=== PATIENT | male | born 1965 | race Caucasian/White ===

== ENCOUNTER 2023-05-22 06:05 | Day surgery (SDC) | payer OTHER, SELFPAY ==
[2023-05-22] VITALS (10 sets, daily range): BP systolic 113–137; BP diastolic 80–92; BMI 25.1
[2023-05-22] MEDS: LOVENOX 40 MG SC (06:36)
[2023-05-22] MEDS: TYLENOL 1000 MG PO (06:36)
[2023-05-22] MEDS: NORMOSOL-R 1000 IV (06:43)
--- NOTE | 2023-05-22 09:25 | W.IMMPOSTOP ---
Surgical Immed Post Op Note
-
Primary Surgeon: Yasmin
Assisting Surgeon: Elmer PGY1
Pre-op Diagnosis: Recurrent incarcerated right inguinal hernia
Post-op Diagnosis: Same
Procedure Performed: Robot assisted laparoscopic repair of recurrent incarcerated right inguinal hernia
Anesthesia Type: GETA
Specimen / Cultures: None
Estimated Blood Loss: 5cc
Complications: None immediate
Operative Findings: Indirect inferior recurrence, prior mesh rolled superior and settled over the inferior epigastric/ilac junction; moderate cord lipoma; XL MID 3D Max
--- NOTE | 2023-05-22 09:27 | OR.RPT ---
Operative Report
Operative Report
Primary Surgeon: Yasmin
Assisting Surgeon: Elmer PGY1
Pre-op Diagnosis: Recurrent incarcerated right inguinal hernia
Post-op Diagnosis: Same
Procedure Performed: Robot assisted laparoscopic repair of recurrent incarcerated right inguinal hernia
Anesthesia Type: GETA
Specimen / Cultures: None
Estimated Blood Loss: 5cc
Complications: None immediate
Operative Findings: Indirect inferior recurrence, prior mesh rolled superior and settled over the inferior epigastric/iliac junction; moderate cord lipoma; XL MID 3D Max
Date of surgery: 05/22/23
Indications:� This 58M developed�recurrent right inguinal hernia.�He had prior open and laparoscopic repairs. Robot assisted laparoscopic repair was planned.
Description of procedure:� The patient was taken to the operating room and positioned into supine position. The patient�s abdomen was prepped and draped in standard sterile fashion. A time-out was completed verifying correct patient, procedure,
site, positioning, and implants and special equipment prior to beginning this procedure.� A stab incision was made in the left upper quadrant, a Veress needle was inserted and proper position was confirmed by aspiration and saline drop test.
Following this, pneumoperitoneum was created with insufflation of carbon dioxide to 12 mmHg. Then a 8mm robotic trocar was inserted above and to the left of the umbilicus. A laparoscope was inserted and the area of initial trocar entry and Veress
needle placement were both inspected and no injuries were found. Two 8mm trocars were then placed lateral to the rectus sheath under direct visualization.
Both inguinal regions were inspected and the median umbilical ligament, medial umbilical ligament, and lateral umbilical fold were identified. Left groin was inspected and no hernia was identified. Attention was turned to the right groin. Thin
omental adhesions were carefully taken down with cold donis and electrocautery. The peritoneum was incised transversely above the defect and a flap was developed in the caudad direction. Luis�s ligament was identified ultimately dissected to its
junction with the iliac vein and the space of Retzius was developed bluntly.� Around the vessels a rolled old mesh was encountered. A plane was identified superficial to the old mesh and the old mesh was swept down and away from the vessels together
with the peritoneal flap. The dissection was continued inferiorly to the iliopubic tract, with care taken to avoid injury to the femoral branch of the genitofemoral nerve and the lateral femoral cutaneous nerve. The cord structures were parietalized.
The direct space was inspected and a hernia was not identified. The femoral space was inspected and no hernia was identified.� The indirect space was inspected and large defect was identified and reduced by gentle traction. A moderate cord lipoma
was reduced from the canal.
Extra large right MID 3D max mesh was passed through a trocar. The mesh was placed into the preperitoneal space and moved into position to lay flat and completely cover the direct, indirect, and femoral spaces with overlap beyond the midline. The
mesh was secured into place using 2-0 vicryl suture to Luis�s ligament medially and laterally. Care was taken to avoid the inferolateral triangles containing the iliac vessels and genital nerves.
The peritoneal flap was closed over the mesh and secured with 2-0 monocryl stratafix suture in similar positions of safety. A 14g angiocath was used to decompress the preperitoneal space revealing good seal and all mesh in good position without
folding or curling. A single small inferior flap rent was closed with 2-0 vicryl suture. After ensuring adequate hemostasis, the trocars were removed and the pneumoperitoneum allowed to escape. The trocar incisions were closed at the skin level
using 4-0 monocryl and topical skin adhesive. The patient tolerated the procedure well and was taken to the postanesthesia care unit in stable condition.
I was present for and performed all hall portions of the procedure. The resident assisted with access, exposure and skin closure.�
[2023-05-22] MEDS: SUBLIMAZE 25 MCG IV ×2 (09:52→10:07)
== END 2023-05-22 11:28 | disposition home or self-care (01) ==
LOC: SDS 06:05
PROVIDERS: ATTENDING PHYSICIAN Surgery
DX: K40.31 Unilateral inguinal hernia, with obstruction, without gangrene, recurrent (principal)
CPT/HCPCS: 49651; 93005; C1781

== ENCOUNTER 2024-08-14 21:06 | Inpatient (IN) | payer OTHER, SELFPAY ==
[2024-08-14 17:01] VITALS: BP 137/99
[2024-08-14 17:22] LABS: % Basophils 0.6 % (0-2); % Immature Granulocytes 0.3 % (0-0.5); % Lymphocytes 17.4 % (20.5-51.1); % Monocytes 8.3 % (1.7-9.3); % Neutrophils 70.4 % (42.2-75.2); Absolute Eosinophils 0.2 10^3/uL (0-0.7); Absolute Lymphocytes 1.1 10^3/uL (1.2-3.4); Absolute Monocytes 0.5 10^3/uL (0.1-0.6); Absolute Neutrophils 4.5 10^3/uL (1.4-6.5); Hematocrit 48.8 % (39.0-52.0); Hemoglobin 16.1 g/dL (13.0-18.0); Mean Corpuscular Hgb 28.4 pg (27.0-31.0); Mean Corpuscular Volume 86.1 fL (80.0-94.0); Nucleated Red Blood Cells % 0 % (-); Platelet Count 185 10^3/uL (130-400); Red Blood Cell Count 5.67 10^6/uL (4.70-6.10); White Blood Cell Count 6.4 10^3/uL (4.8-10.8)
[2024-08-14 17:35] LABS: Lactic Acid 1.1 mmol/L (0.7-2.0)
[2024-08-14 17:36] LABS: ALT (SGPT) 31 U/L (0-50); AST (SGOT) 25 U/L (17-59); Albumin 4.1 g/dl (3.5-5.0); Alkaline Phosphatase 54 U/L (38-126); Blood Urea Nitrogen 21 mg/dl (9-20); Calcium 9.4 mg/dl (8.4-10.2); Carbon Dioxide 28 mmol/L (22-30); Chloride 104 mmol/L (98-107); Glucose 106 mg/dl (70-99); Lipase 112 U/L (23-300); Potassium 4.7 mmol/L (3.5-5.1); Sodium 138 mmol/L (135-145); Total Bilirubin 0.9 mg/dl (0.2-1.3); Total Protein 7.3 g/dl (6.3-8.2); eGFR > 60.00
--- NOTE | 2024-08-14 18:23 | ED.GENMED ---
History of Present Illness
General
Chief Complaint: Abdominal Pain
Source: patient
Exam Limitations: none
Time Seen by Provider: 08/14/24 17:52
Nursing documentation reviewed up to this point in time: agreed with
History of Present Illness
History of Present Illness:
Patient is a 59-year-old male with history of hyperlipidemia, GERD, factor V Leiden presenting to the emergency department for evaluation of abdominal pain x 2 days. He states symptoms started yesterday morning when he woke up and he describes a
relatively constant pain in his right mid to lower abdomen without any radiation to his back or groin. He denies any associated fever, chills, nausea, vomiting or anorexia. No chest pain, shortness of breath, or urinary syndromes. No diarrhea or
constipation.
He reports normal appetite and he is actually hungry while in the emergency department. He last ate today around lunchtime.
He does have a history of bilateral inguinal hernia repairs, most recently on the right side about one year ago. He states this pain feels very different than when he has had incarcerated hernias in the past.
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
Past History
Past History
ED Past Medical History: GERD, Hypercholesterolemia and Other (factor 5 Leiden)
ED Past Surgical History: Other (hernia X 3)
Social History
Tobacco: Non-smoker
Alcohol: Occasional
Personal:
Living: with family
Employment: Employed
Review of Systems
Review of Systems
Allergies reviewed?: Yes
All Other Systems: ROS reviewed and negative except as documented in HPI and ROS
Phy Exam
Physical Exam
Physical Exam:
Vitals: Hypertensive, otherwise vital signs stable. Afebrile
General: Patient is well appearing, no acute distress. Nontoxic appearing.
Skin: Warm and dry, no rashes or lesions
Head: Normocephalic, atraumatic
Eyes: Sclera nonicteric.
Throat: Protecting airway
Neck: Normal ROM, no cervical spine tenderness, no meningismus
Cardiac: Regular rate and rhythm, no murmurs.
Pulm: Normal respiratory effort, no wheezes, rales, rhonchi heard on exam
.
Abdomen: Abdomen soft. Reproducible tenderness in right mid abdomen/ right lower quadrant. No rebound tenderness or guarding. Negative Escobedo sign. No palpable inguinal mass/lump.
Extremities: No evidence of cyanosis or edema. DP pulses palpable bilaterally.
Neuro: AAOx3. Grossly intact
Psychiatric: Normal affect.
Course
Orders/Labs/Results
Orders:
Orders
08/14/24 17:14
Complete Blood Count/With Diff Urgent
Comprehensive Metabolic Panel Urgent
Lactic Acid Urgent
Lipase Urgent
08/14/24 18:22
CT Abd/pelvis W Iv Cont Urgent
Comment:
Reason For Exam: RLQ pain
0.9% Sodium Chloride 1000 ml [Nss] 1,000 ml IV BOLUS
08/14/24 18:41
Urinalysis Reflex To Culture Urgent
Date Specimen was Collected: 08/14/24
Time Specimen was Collected: 18:35
Urine Microscopic Reflex Cult Urgent
08/14/24 20:00
HYDROmorphone [Dilaudid] 0.5 mg IV NOW STA
Piperacillin/Tazo 3.375 Gram [Zosyn] 3.375 gram in 50 ml IV NOW
08/14/24 20:40
Admit/Transfer Patient As Directed
Co-Sign Provider:
Level of Care: Inpatient admission
Assign to:: Medical/Surgical
Physician / Group: Les
Diagnosis: Acute appendicitis
Reason for Hospitalization: acute appendicitis
Expected length of stay greater than two midnights?: Yes
ELOS- Estimated Length of Stay in days: 2
I certify the patient meets the requirements for IP care: Yes
Code Status As Directed
Resuscitation Status: Full Code
PRN Pain Medication Management As Directed
May give lesser potent ordered pain med per pt: Yes
preference::
Protocol:: Medication orders for pain may be administered in a
manner that supports deferring to patient preference
when the pt is:
- Requesting an ordered lesser potent pain medication.
Least to most potent pain medications are defined
as: acetaminophen < NSAID < tramadol < opioids
(morphine, oxycodone, hydromorphone).
- Requesting a lesser dose of the same medication IF
ORDERED.
- Requesting a less intrusive route of administration
if both routes are prescribed by the provider (PO <
IV).
08/14/24 21:43
Acetaminophen [Tylenol] 650 mg PO Q4HPRN PRN
Bisacodyl [Dulcolax] 10 mg RECTAL [id number] PRN
Dextrose 5%/Lactringers 1000ML [D5lr] 1,000 ml IV 100 mls/hr
Docusate W/Senna [Senokot-S] 1 tablet PO BIDPRN PRN
HYDROmorphone [Dilaudid] 0.5 mg IV Q4HPRN PRN
Ondansetron Injectable [Zofran] 4 mg IV Q6HPRN PRN
Oxycodone [Roxicodone] 5 mg PO Q4HPRN PRN
Polyethylene Glycol Powder [Miralax] 17 grams PO DAILYPRN PRN
08/14/24 21:43
SURGICAL CONSULT Routine
Consulting Provider: Natalio Hoffman
Was physician already notified: Yes
Activity As Directed
Activity Level: With Assistance
Pneumatic Compression Sleeves As Directed
Type: Knee high
Vital Signs As Directed
Frequency: Per unit guidelines
Pulse Ox/spot Check [RESP] Routine
Quantity: 1
DX Deep Vein Thrombosis Video Routine
08/15/24 02:00
Piperacillin/Tazo 3.375 Gram [Zosyn] 3.375 gram in 50 ml IV Q6H
08/15/24 Breakfast
NPO
Allow oral meds: Yes
Allow clear liquids: Sips of Clears
Basic Metabolic Panel IN AM
Complete Blood Count/No Diff IN AM
Magnesium IN AM
Prothrombin Time IN AM
Abnormal Lab Results
08/14/24 08/14/24
17:14 18:41
Absolute Lymphs (auto) 1.1 L 10^3/uL
(1.2-3.4)
Lymphocytes % 17.4 L %
(20.5-51.1)
BUN 21 H mg/dl
(9-20)
Glucose 106 H mg/dl
(70-99)
Urine Albumin (Reflex) 1+ A
(Neg - Trace)
08/14/24 17:14
08/14/24 17:14
Vital Signs
Initial and Last Documented VS:
Initial Vital Signs
Temp Pulse Resp BP Pulse Ox
98.1 F 83 20 137/99 99
08/14/24 17:01 08/14/24 17:01 08/14/24 17:01 08/14/24 17:01 08/14/24 17:01
Last Documented Vital Signs
Temp Pulse Resp BP Pulse Ox
98.0 F 75 18 130/87 96
08/14/24 23:00 08/14/24 23:00 08/14/24 23:00 08/14/24 23:00 08/14/24 23:00
MDM/Problems Addressed
Differential Diagnosis Includes:
Not limited to: constipation, appendicitis, epiploic appendagitis, viral illness, biliary colic, ureterolithiasis, pyelonephritis, diverticulitis, etc
MDM/Problems Addressed:
59-year-old male with history as documented presenting with two days of right sided abdominal pain. No associated fevers, vomiting, urinary symptoms, constipation. Vitals and physical exam as above. Patient very well appearing, no apparent distress.
He�s afebrile. Abdomen soft with focal tenderness in right mid abdomen/right lwer quadrant just superior to McBurney's point. Differential broad although appendicitis would be on differential given location of pain. Lab work was initiated in triage.
CBC and chemistry without acute abnormalities. There�s no leukocytosis. Will give IV fluids. Patient declines analgesia at this time. Will check CT abdomen/pelvis and UA.
Update: CT shows findings of mild uncomplicated appendicitis. Started patient on IV zosyn in ED. Discussed with general surgery, Dr. Hoffman. Given patient is on Eliquis � plan will be for OR once Eliquis washed out. Will hold further Eliquis.
Patient admitted to hospitalist service in stable condition.
Chronic conditions affecting care:
Factor V Leiden, hx IJ DVT on eliquis
Acute Exacerbation and/or Progression of Chronic Illness:
NA
*Radiology
Radiology exam reviewed: radiology read reviewed
*Pulse Oximetry
Patient hypoxic: no
*EKG
Interpreted by ED Provider?: NA
*Guitar Maker Hand Interpretation
Rate: Guitar Maker Hand- N/A
*Critical Care Note
Total Time (30-74mins, 75-104mins- exclusive of procedures): Not Applicable
Patient Management
Discussion with other providers: Hospitalist and Telecommunications Analyst (Case discussed w/ general surgery)
Escalation/DeEscalation of care consider admission/obs:
Admit for acute appendicitis - plan for OR pending eliquis washed out
ED Attending Note
-
Portions of this chart may have been created with voice recognition software.� Occasional wrong word or��sound alike� substitutions may have occurred due to the inherent limitations of voice recognition software.
Discharge Plan
Departure
Patient Disposition: Admit
Date of Disposition: 08/14/24
Time of Disposition: 20:32
Presentation/result/management discussed w/ accepting MD/DO: Hospitalist
Discharge Problem:
Acute appendicitis
Interventions
Interventions:
*Risk Screen - Suicide Last Done: 08/14/24 22:05
*General Assessment Last Done: 08/14/24 17:01
*Neglect/Abuse Screening Last Done: 08/14/24 18:39
*ED- Fall Risk Assessment Last Done: 08/14/24 18:39
*ED COVID-19 Vaccine History Last Done: 08/14/24 18:39
*Nursing Disposition Last Done: 08/14/24 21:41
MW-Mqdqlf-Uhkygwyoab Assessment Last Done: 08/14/24 18:39
Discharge Date and Time
Discharge Date/Time: 08/14/24 21:41
[2024-08-14 18:39] VITALS: BMI 25.1
[2024-08-14] MEDS: NSS 1000 IV (18:47)
[2024-08-14 18:50] VITALS: BP 138/95
[2024-08-14 18:58] LABS: Urine Albumin 1+ (Neg - Trace); Urine Bilirubin Negative (Negative); Urine Character Clear (Clear); Urine Color Yellow; Urine Glucose Negative (Negative); Urine Ketone Negative (Negative); Urine Leukocyte Negative (Negative); Urine Nitrite Negative (Negative); Urine Occult Blood Negative (Negative); Urine Urobilinogen Negative (Neg - 1+)
[2024-08-14 19:09] LABS: Urine Mucus Few; Urine Red Blood Cell 0-2 /HPF (0-2)
[2024-08-14] MEDS: DILAUDID 0.5 MG IV (20:10)
[2024-08-14] MEDS: ZOSYN 50 IV (20:10)
--- NOTE | 2024-08-14 20:39 | HPS.HSE ---
Family Physician
-
Family Physician: Swati Yun
Chief Complaint
-
Abdominal pain
History of Present Illness
59-year-old with past medical history of factor V Leiden on Eliquis 2.5 mg presenting to the emergency department with abdominal pain.
Patient report 1 day history of abdominal pain in the right lower quadrant without any radiation. He denies any associated nausea or vomiting. He denies diaphoresis. He denies fevers or chills. He has prior history of hernia repairs multiple
times. 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 He remains on Eliquis 2.5 mg prophylactic dose with last dose taken at 5 AM today.
In the ED he was afebrile, blood pressure was 138/90 with a pulse of 83 satting 99% on room air.
White count was 6.4, hemoglobin and platelets were normal. Electrolytes were BUN/creatinine within the normal range. LFTs were normal.
UA was negative.
CT of the abdomen pelvis showed mild acute uncomplicated appendicitis.
Medical History
Past Medical History
Past Medical History: Reports Other (Factor V Leiden, jugular vein thrombus)
Past Surgical History: Reports Other (Hernia repair)
Social History
Tobacco: Non-smoker
Alcohol: None
Drug: None
Personal:
Living: With Family
Employment: Employed
Family History
Family History: Not pertinent
Allergies / Home Medications
Allergies reflects when Allergies were last updated in [facility].
Home Medications with original date entered in [facility]
Allergy/Medication List:
Allergies
Allergy/AdvReac Type Severity Reaction Status Date / Time
No Known Allergies Allergy Verified 08/14/24 17:01
Home Medications
apixaban 2.5 mg tablet (Eliquis) 2.5 mg PO BID 05/18/23
ibuprofen PO PRN PRN pain 05/18/23
oxycodone 5 mg tablet 5 - 10 mg (1 - 2 x 5 mg) PO Q4HPRN PRN moderate to severe pain #14 tabs 05/22/23
Review of Systems
-
History Source: Patient
Constitutional: Reports No Symptoms
EENT: Reports No Symptoms
Respiratory: Reports No Symptoms
Cardiac: Reports No Symptoms
Abdomen/GI: Reports Abdominal Pain
: Reports No Symptoms
Musculoskeletal: Reports No Symptoms
Skin: Reports No Symptoms
Neurological: Reports No Symptoms
Endocrine: Reports No Symptoms
Hematologic/Lymphatic: Reports No Symptoms
Psych: Reports No Symptoms
Physical Exam
Vital Signs
Vital Signs
Temp Pulse Resp BP Pulse Ox
98.1 F 83 20 138/95 99
08/14/24 17:01 08/14/24 17:01 08/14/24 17:01 08/14/24 18:50 08/14/24 17:01
Physical Exam
General: Well Developed, Well Nourished, No Apparent Distress and Comfortable
HEENT: NormoCephalic, Anicteric, Moist mucous membranes and Atraumatic
Respiratory: Clear
Cardiac: S1/S2
Breast: Deferred by me
GI: Soft, Non Distended, Normal Bowel Sounds and Tender (No guarding, no rebound)
Rectal: Deferred by Provider
Genito-urinary: Deferred by me
Musculoskeletal: No Clubbing, No Cyanosis and No Edema
Skin: Warm; No Rash
Neuro: AO x 3 and Nonfocal/grossly intact
Hematologic/Lymphatic: No Lymphadenopathy
Psych: Calm
Laboratory Results
-
08/14/24 17:14
08/14/24 17:14
Laboratory Results
Lactic Acid 1.1 mmol/L (0.7-2.0) 08/14/24 17:14
Total Bilirubin 0.9 mg/dl (0.2-1.3) 08/14/24 17:14
AST 25 U/L (17-59) 08/14/24 17:14
ALT 31 U/L (0-50) 08/14/24 17:14
Alkaline Phosphatase 54 U/L (38-126) 08/14/24 17:14
Lipase 112 U/L (23-300) 08/14/24 17:14
Data Reviewed
-
CT Scan: Report Reviewed by me
Lab Data: Labs Reviewed by me
Old Records: Reviewed
Impression/Plan
-
IMPRESSION:
Generally healthy 59-year-old male with particle history of factor V Leiden presenting to the emergency department abdominal pain and found to have acute uncomplicated appendicitis. He is nontoxic-appearing, hemodynamically stable afebrile and
without leukocytosis.
PLAN:
Acute appendicitis
- admit to med/surg
- npo
- iv fluids with d5 lr
- iv zosyn for now
- pain control and antiemetics
- holding eliquis prophylactic dose, last dose 5 am (2.5mg), scds
- surgery aware, plan for procedure after washout of eliquis
DVT PPX - SCDs
Code status - Full code
[2024-08-14 21:50] VITALS: BP 154/105; BMI 24.9
[2024-08-14] MEDS: D5LR 1000 IV (21:54)
[2024-08-14 23:00] VITALS: BP 130/87
[2024-08-15] MEDS: ZOSYN 50 IV ×4 (01:19→19:50)
[2024-08-15] MEDS: DILAUDID 0.5 MG IV (05:28)
[2024-08-15 07:07] LABS: Hematocrit 46.1 % (39.0-52.0); Mean Corp Hgb Conc. 32.5 g/dL (33.0-37.0); Mean Corpuscular Hgb 27.7 pg (27.0-31.0); Mean Corpuscular Volume 85.1 fL (80.0-94.0); Platelet Count 172 10^3/uL (130-400); Red Blood Cell Count 5.42 10^6/uL (4.70-6.10); Red Cell Dist. Width 14.3 % (11.5-14.5); White Blood Cell Count 5.8 10^3/uL (4.8-10.8)
[2024-08-15 07:10] LABS: INR 0.95; PT 13.1 Sec (11.4-14.6)
[2024-08-15 07:19] VITALS: BP 121/81
[2024-08-15 07:41] LABS: Blood Urea Nitrogen 14 mg/dl (9-20); Calcium 8.6 mg/dl (8.4-10.2); Carbon Dioxide 29 mmol/L (22-30); Chloride 104 mmol/L (98-107); Estimated Creatinine Clearance 63 ml/min; Glucose 113 mg/dl (70-99); Magnesium 1.9 mg/dl (1.6-2.3); Potassium 4.3 mmol/L (3.5-5.1); Sodium 136 mmol/L (135-145); eGFR > 60.00
[2024-08-15] MEDS: D5LR 1000 IV ×2 (08:40→18:57)
--- NOTE | 2024-08-15 09:25 | W.PN.HOSP.TC ---
Today's Communication/Plan
-
Advance diet
Assessment / Plan
Assessment / Plan
IMPRESSION:
59-year-old male with past medical history of factor V Leiden presenting to the ER with abdominal pain and found to have acute uncomplicated appendicitis.
PLAN:
#Acute appendicitis
Patient is afebrile, no elevated white count, stable vitals
Consulted surgery
npo
IV fluids
Continue Zosyn
Adequate pain control
Zofran as needed
Hold Eliquis , last dose 5 am (2.5mg) on 08/14/2024
Plan for appendectomy after Eliquis washout
Surgery discussed about the possibility of getting interval appendectomy if patient remains asymptomatic and tolerates diet
DVT PPX - SCDs
Code status - Full code
Anticipated Discharge: 24 - 48 hours
Subjective/Interval History
-
Date of Service: August 15, 2024
Patient reports having mild nausea
Objective Data
-
Labs:
Laboratory Results
08/15/24
06:34
WBC 5.8
Hgb 15.0
Hct 46.1
Plt Count 172
PT 13.1
INR 0.95
Sodium 136
Potassium 4.3
Chloride 104
Carbon Dioxide 29
BUN 14
Creatinine 1.2
Glucose 113 H
Calcium 8.6
Vital Signs:
Vital Signs
Temp Pulse Resp BP Pulse Ox
98.0 F 67 17 121/81 97
08/15/24 07:19 08/15/24 07:19 08/15/24 07:19 08/15/24 07:19 08/15/24 07:19
I&O
08/14/24 08/15/24 08/16/24
06:59 06:59 06:59
Intake Total 950 / 950
Balance 950 / 950
Review of Systems
-
All other systems: Reviewed and negative (Except as mentioned above)
Physical Exam
-
General: Well Developed and Well Nourished
HEENT: Normocephalic and Atraumatic
Respiratory: Clear to Auscultation
Cardiac: Regular Rhythm and S1/S2
GI: Soft, Normal Bowel Sounds and Tender (Suprapubic and right lower quadrant)
Skin: Warm and Dry
Neuro: Awake, Alert, Oriented and AO x 3
Psych: Calm
--- NOTE | 2024-08-15 09:35 | VATNOTE ---
VAT rounds: pt states IV site has never really been comfortable and kind of hurts during assessment. Discussed and pt agrees to have IV site replaced (see IV documentation). States IV site still hurts after removing IV site, heat applied and patient
education completed regarding heat application during the healing process, verbalizes understanding. PCN notified of same.
--- NOTE | 2024-08-15 12:05 | CON.GS ---
Consultation
-
Date/Time Consultation Performed: 08/15/24
Requesting Provider: Bimal
Performing Provider: Yasmin
Reason for Consultation: Acute appendicitis
Medical History
-
Chief Complaint: Abd pain
History of Present Illness:
59M with acute onset RLQ abd pain that began yesterday morning. No migration nor radiation. Denies f/c/n/v. Denies changes to stool/urine. Never had similar pain before. On elequis ffor DVT, last dose yesterday am. He tells me he ate a questionable
pork chop prior to onset.
Past Medical History
Past Medical History: Other (Factor V Leiden, jugular vein thrombus)
Past Surgical History: Hernia Repair
Social History
Tobacco: Non-Smoker
Alcohol: None
Drug: None
Personal:
Living: With Family
Employment: Employed
Family History
Family History: Reviewed & Noncontributory
Allergies / Home Medications
Allergy/AdvReac Type Severity Reaction Status Date / Time
No Known Allergies Allergy Verified 08/14/24 17:01
�Medication �Instructions �Recorded �Confirmed �Type
apixaban 2.5 mg tablet (Eliquis) 2.5 mg PO BID 05/18/23 05/22/23 History
ibuprofen PO PRN PRN pain 05/18/23 History
oxycodone 5 mg tablet 5 - 10 mg (1 - 2 x 5 mg) PO Q4HPRN 05/22/23 Rx
PRN moderate to severe pain #14
tabs
Review of Systems
-
A 10 point review of systems was completed, and was negative except as per HPI.
Physical Exam
Vital Signs
Temp Pulse Resp BP Pulse Ox
98.0 F 67 17 121/81 97
08/15/24 07:19 08/15/24 07:19 08/15/24 07:19 08/15/24 07:19 08/15/24 09:53
08/14/24 08/15/24 08/16/24
06:59 06:59 06:59
Actual Weight 74.191 kg
Body Mass Index (BMI) 24.9
Lab Results
08/15/24 06:34
08/15/24 06:34
WBC 5.8 10^3/uL (4.8-10.8) 08/15/24 06:34
Hgb 15.0 g/dL (13.0-18.0) 08/15/24 06:34
Hct 46.1 % (39.0-52.0) 08/15/24 06:34
Plt Count 172 10^3/uL (130-400) 08/15/24 06:34
Abs Immat Gran (auto) 0.0 10^3/uL (0-0.05) 08/14/24 17:14
Neutrophils % 70.4 % (42.2-75.2) 08/14/24 17:14
Physical Exam
General: Well Developed, Well Nourished and No Apparent Distress
GI: Soft, Non Tender and Non Distended
Neuro: AO x 3
Psych: Calm
Data Reviewed
-
CT Scan: Image Personally Visualized and interpreted, Report Reviewed by me and Discussed with Patient
Labs: Labs Reviewed by me and Discussed with Patient
Old Records: Reviewed
Assessment / Plan
-
59M with possible early mild acute appendicitis
AFVSS, nontender on exam
No leukocytosis, no shift, no pyuria
CT with questionable mild stranding around the appendix, no fecalith
Plan:
Hold eliquis
Reg diet
IV abx
Serial exams
Possible OR tomorrow vs home with PO abx and outpt discussions regarding interval appendectomy
--- NOTE | 2024-08-15 14:51 | CM ---
Patient seen at bedside
IA completed
CM role explained
Dx: Acute Appendicitis
Lives in 2 story home with , flight stairs to bedroom/bath
PLOF: independent
Denies DME
Denies VN/Rehab
Denies insecurities
PCP: Tala Yun
Pharmacy: [facility]
PLAN: Home, no needs anticipated, when medically stable
[2024-08-15 14:55] VITALS: BP 132/83
--- NOTE | 2024-08-15 15:47 | W.PN.UPDATE ---
Update Note
Progress Note Update
Pt seen and evaluated at bedside. Feels worse now, with nausea. Denies abd pain. Denies f/c. On exam he has ttp in the RLQ. Will make NPO@MN and plan for OR tomorrow for lap appy.
[2024-08-15] MEDS: ROXICODONE 5 MG PO (21:12)
[2024-08-15 23:00] VITALS: BP 126/80
[2024-08-16] VITALS (13 sets, daily range): BP systolic 108–143; BP diastolic 75–94
[2024-08-16] MEDS: ZOSYN 50 IV ×3 (01:21→20:52)
[2024-08-16] MEDS: D5LR 1000 IV (04:55)
[2024-08-16 09:08] LABS: % Basophils 0.8 % (0-2); % Eosinophils 6.4 % (0-6); % Immature Granulocytes 0.3 % (0-0.5); % Monocytes 12.6 % (1.7-9.3); % Neutrophils 60.9 % (42.2-75.2); Absolute Basophils 0.1 10^3/uL (0-0.2); Absolute Eosinophils 0.5 10^3/uL (0-0.7); Absolute Lymphocytes 1.5 10^3/uL (1.2-3.4); Absolute Neutrophils 4.8 10^3/uL (1.4-6.5); Hematocrit 47.4 % (39.0-52.0); Hemoglobin 15.7 g/dL (13.0-18.0); Mean Corp Hgb Conc. 33.1 g/dL (33.0-37.0); Mean Corpuscular Hgb 28.2 pg (27.0-31.0); Mean Corpuscular Volume 85.3 fL (80.0-94.0); Mean Platelet Volume 10.1 fL (7.4-10.4); Nucleated Red Blood Cells % 0 % (-); Platelet Count 187 10^3/uL (130-400); Red Blood Cell Count 5.56 10^6/uL (4.70-6.10); Red Cell Dist. Width 13.9 % (11.5-14.5); White Blood Cell Count 7.8 10^3/uL (4.8-10.8)
[2024-08-16 09:19] LABS: Blood Urea Nitrogen 9 mg/dl (9-20); Calcium 9.1 mg/dl (8.4-10.2); Carbon Dioxide 31 mmol/L (22-30); Chloride 104 mmol/L (98-107); Estimated Creatinine Clearance 58 ml/min; Glucose 114 mg/dl (70-99); Potassium 4.5 mmol/L (3.5-5.1); Sodium 138 mmol/L (135-145); eGFR > 60.00
--- NOTE | 2024-08-16 09:31 | W.PN.GS2 ---
Today's Communication / Plan
-
-- Laparoscopic appendectomy
-- Antibiotics: Zosyn
Assessment / Plan
-
Patient is a 59 yo M p/w acute appendicitis
AVSS
Labs notable for normal WBC
Clinical improvement with antibiotic therapy. Natural history and pathophysiology of appendicitis was reviewed. Options for management including medical management with antibiotics versus surgical management with appendectomy were considered and
discussed. The pros and cons of both approaches was discussed. Specifically, we discussed failure of medical management and future episodes of appendicitis versus surgical risks. Mr. Angelo would like to proceed with appendectomy.
for laparoscopic appendectomy. The procedure itself, as well as the risks, benefits, and alternatives was discussed. Specifically, we discussed the risk of bleeding, infection, injury to surrounding structures (bowel, bladder), staple line leak,
need for open procedure. Typical postprocedural recovery including activity restrictions and pain control was discussed. All questions answered. Consent signed.
-- Laparoscopic appendectomy
-- NPO, IVF
-- Antibiotics: Zosyn
-- Continue to hold Eliquis
Subjective Data
-
Date of Service: August 16, 2024
Patient feels improved denies any significant worsening abdominal pain. No fevers or chills. No nausea or vomiting. Symptoms began on the morning of 08/14. He states that his last dose of Eliquis was on Monday.
Objective Data
-
Intake and Output
08/15/24 08/16/24 08/17/24
06:59 06:59 06:59
Intake Total 950 / 950 2039
Balance 950 / 950 2039
Intake:
Oral fluids 840 / 840
IV fluids (Total) 900 / 900 1100 / 1100
IV piggybacks 50 / 50 100 / 100
Other:
Number of approximated MODERATE 2 3
amounts of urine
Vital Signs
Temp Pulse Resp BP Pulse Ox
98.1 F 68 18 128/82 95
08/16/24 07:48 08/16/24 07:48 08/16/24 07:48 08/16/24 07:48 08/16/24 07:48
Lab Results
08/16/24 08:49
08/16/24 08:49
Calcium 9.1 mg/dl (8.4-10.2) 08/16/24 08:49
Magnesium 1.9 mg/dl (1.6-2.3) 08/15/24 06:34
Total Bilirubin 0.9 mg/dl (0.2-1.3) 08/14/24 17:14
AST 25 U/L (17-59) 08/14/24 17:14
ALT 31 U/L (0-50) 08/14/24 17:14
Alkaline Phosphatase 54 U/L (38-126) 08/14/24 17:14
Total Protein 7.3 g/dl (6.3-8.2) 08/14/24 17:14
Albumin 4.1 g/dl (3.5-5.0) 08/14/24 17:14
Physical Exam
-
Gen: NAD
Abd: soft, minimal RLQ tenderness, ND, non-peritoneal, prior incisions well healed
Patient has a johnson catheter: No
Patient has a central line: No
--- NOTE | 2024-08-16 09:34 | W.SUR.PREOP ---
Pre-Operative Surgical Note
-
I have examined this patient prior to the performance of the scheduled procedure.
The patient's condition is unchanged from the time of the current History and
Physical and the patient is able to undergo the scheduled procedure.
[2024-08-16] MEDS: ZOSYN IV (11:40)
--- NOTE | 2024-08-16 12:05 | W.IMMPOSTOP ---
Surgical Immed Post Op Note
-
Primary Surgeon: Josh
Assisting Surgeon: TULIO Mayorga
Pre-op Diagnosis: Acute appendicitis
Post-op Diagnosis: Acute appendicitis
Procedure Performed: Laparoscopic appendectomy
Anesthesia Type: General
Specimen / Cultures:
1. Appendix
Estimated Blood Loss: 3 cc
Complications: None
Operative Findings:
1. Mildly dilated an inflamed mid body of appendix, no perforation
2. Mesentery taken with [employer]
3. Base with collins load stapler
[2024-08-16] MEDS: NORMOSOL-R/PLASMALYTE-A 1000 IV (13:12)
--- NOTE | 2024-08-16 14:03 | CM ---
Patient seen at bedside
Procedure Performed: Laparoscopic appendectomy
PLAN: Home, no needs
--- NOTE | 2024-08-16 14:26 | W.PN.UPDATE ---
Update Note
Progress Note Update
I personally evaluated the patient at the bedside today. Evaluation was prior to his appendectomy.
Patient was comfortable in bed, denied any abdomen pain at the time. Still with some RLQ tenderness
Acute appendicitis. Planning for laparoscopic appendectomy with general surgery today. N.p.o. prior to his procedure. Will follow-up with surgery after his procedure to discuss discharge timeline as well as timeline to resume his Eliquis. With
his underlying factor V Leiden would prefer him to go back on Eliquis within 48 hours of the procedure.
Plan for diet after surgery
Full code
Likely discharge within next 24 hours
--- NOTE | 2024-08-16 15:51 | W.PN.HOSP.TC ---
Today's Communication/Plan
-
Advance diet as tolerated
Resume Eliquis Monday morning
Discharge tomorrow
Assessment / Plan
Assessment / Plan
IMPRESSION:
59-year-old male with past medical history of factor V Leiden presenting to the ER with abdominal pain and found to have acute uncomplicated appendicitis.
PLAN:
#Acute appendicitis
S/p appendectomy today
Patient is afebrile, no elevated white count, stable vitals
Patient tolerated diet well
IV fluids
Continue Zosyn
Adequate pain control
Zofran as needed
Eliquis on hold, resume Eliquis 2.5 Monday morning.
Per surgery�discharge tomorrow, if patient is stable.
DVT PPX - SCDs
Code status - Full code
Anticipated Discharge: Within 24 hours
Subjective/Interval History
-
Date of Service: August 16, 2024
Evaluated the patient after appendectomy.
Laparoscopic port incision sites intact.
Patient states he just ate his lunch, was able to keep it down. No abdominal pain reported.
Objective Data
-
Labs:
Laboratory Results
08/16/24
08:49
WBC 7.8
Hgb 15.7
Hct 47.4
Plt Count 187
Sodium 138
Potassium 4.5
Chloride 104
Carbon Dioxide 31 H
BUN 9
Creatinine 1.3
Glucose 114 H
Calcium 9.1
Vital Signs:
Vital Signs
Temp Pulse Resp BP Pulse Ox
98.0 F 76 18 143/94 97
08/16/24 15:45 08/16/24 15:45 08/16/24 15:45 08/16/24 15:45 08/16/24 15:45
I&O
05/08/16/24 08/17/24
06:59 06:59 06:59
Intake Total 950 / 950 2039 150 / 150
Balance 950 / 950 2039 150 / 150
Review of Systems
-
All other systems: Reviewed and negative
Physical Exam
-
General: Well Developed, Well Nourished and No Apparent Distress
HEENT: Normocephalic and Atraumatic
Respiratory: Clear to Auscultation
Cardiac: Regular Rhythm and S1/S2
GI: Soft, Normal Bowel Sounds and Tender (Anticipated tenderness at the incision sites)
Skin: Warm, Dry and Other (Port incision sites, cdi)
Neuro: Awake, Alert, Oriented and AO x 3
Psych: Calm
[2024-08-16] MEDS: D5LR IV (15:58)
[2024-08-16] MEDS: LOVENOX 40 MG SC (17:10)
[2024-08-16] MEDS: DILAUDID 0.5 MG IV (20:51)
[2024-08-17] MEDS: D5LR IV ×2 (01:34→08:16)
[2024-08-17] MEDS: ZOSYN 50 IV ×2 (01:49→08:26)
[2024-08-17 07:05] VITALS: BP 124/73
[2024-08-17 07:39] LABS: % Basophils 0.5 % (0-2); % Eosinophils 1.7 % (0-6); % Immature Granulocytes 0.4 % (0-0.5); % Lymphocytes 18.8 % (20.5-51.1); % Monocytes 10.9 % (1.7-9.3); % Neutrophils 67.7 % (42.2-75.2); Absolute Basophils 0.1 10^3/uL (0-0.2); Absolute Eosinophils 0.2 10^3/uL (0-0.7); Absolute Lymphocytes 1.8 10^3/uL (1.2-3.4); Absolute Monocytes 1.1 10^3/uL (0.1-0.6); Absolute Neutrophils 6.5 10^3/uL (1.4-6.5); Hematocrit 44.4 % (39.0-52.0); Hemoglobin 14.7 g/dL (13.0-18.0); Mean Corp Hgb Conc. 33.1 g/dL (33.0-37.0); Mean Corpuscular Hgb 27.9 pg (27.0-31.0); Mean Corpuscular Volume 84.3 fL (80.0-94.0); Mean Platelet Volume 9.8 fL (7.4-10.4); Nucleated Red Blood Cells % 0 % (-); Platelet Count 200 10^3/uL (130-400); Red Blood Cell Count 5.27 10^6/uL (4.70-6.10); Red Cell Dist. Width 13.8 % (11.5-14.5); White Blood Cell Count 9.7 10^3/uL (4.8-10.8)
[2024-08-17 08:09] LABS: ALT (SGPT) 25 U/L (0-50); AST (SGOT) 24 U/L (17-59); Albumin 3.6 g/dl (3.5-5.0); Alkaline Phosphatase 47 U/L (38-126); Blood Urea Nitrogen 14 mg/dl (9-20); Calcium 8.5 mg/dl (8.4-10.2); Carbon Dioxide 24 mmol/L (22-30); Chloride 107 mmol/L (98-107); Estimated Creatinine Clearance 63 ml/min; Glucose 92 mg/dl (70-99); Potassium 4.5 mmol/L (3.5-5.1); Sodium 137 mmol/L (135-145); Total Bilirubin 0.8 mg/dl (0.2-1.3); Total Protein 5.9 g/dl (6.3-8.2); eGFR > 60.00
[2024-08-17] MEDS: ROXICODONE 5 MG PO ×2 (08:26→13:25)
[2024-08-17] MEDS: SENOKOT-S 1 TABLET PO (08:26)
--- NOTE | 2024-08-17 09:29 | W.PN.HOSP.TC ---
Today's Communication/Plan
-
Discharge today
Follow-up with surgery
Eliquis to be resumed tomorrow morning
Assessment / Plan
Assessment / Plan
IMPRESSION:
59-year-old male with past medical history of factor V Leiden presenting to the ER with abdominal pain and found to have acute uncomplicated appendicitis.
PLAN:
#Acute appendicitis
S/p laparoscopic appendectomy #POD 1
Patient is afebrile, no elevated white count, stable vitals
Patient tolerated diet well
Continue regular diet
Adequate pain control
Zofran as needed
No further antibiotics at discharge
Eliquis on hold, resume Eliquis 2.5 Monday morning.
Discharge today
DVT PPX - SCDs
Code status - Full code
Anticipated Discharge: Today
Subjective/Interval History
-
Date of Service: August 17, 2024
Patient reports no chills, has mild abdominal discomfort,
no vomiting, had a bowel movement.
Objective Data
-
Labs:
Laboratory Results
08/17/24
07:01
WBC 9.7
Hgb 14.7
Hct 44.4
Plt Count 200
Sodium 137
Potassium 4.5
Chloride 107
Carbon Dioxide 24
BUN 14
Creatinine 1.2
Glucose 92
Calcium 8.5
Total Bilirubin 0.8
AST 24
ALT 25
Alkaline Phosphatase 47
Vital Signs:
Vital Signs
Temp Pulse Resp BP Pulse Ox
98.1 F 68 18 124/73 98
08/17/24 07:05 08/17/24 07:05 08/17/24 07:05 08/17/24 07:05 08/17/24 07:05
I&O
08/16/24 08/17/2425
06:59 06:59 06:59
Intake Total 2039 / 1629
Balance 2039
Review of Systems
-
All other systems: Reviewed and negative (Except as mentioned)
Physical Exam
-
General: Well Developed and Well Nourished
HEENT: Normocephalic and Atraumatic
Respiratory: Clear to Auscultation
Cardiac: Regular Rhythm and S1/S2
GI: Soft, Normal Bowel Sounds and Other (Laparoscopic port incisions intact with glue, anticipated tenderness)
Skin: Warm and Dry
Neuro: Awake, Alert, Oriented and AO x 3
--- NOTE | 2024-08-17 09:35 | W.PN.GS2 ---
Addendum entered and electronically signed by Pj Moreno MD 08/17/24 12:32:
Patient seen and examined.
No complaints. Pain overall well-controlled. Tolerating diet. Afebrile.
Gen: NAD
Abd: soft, appropriately tender in umbilical region, ND, non-peritoneal, incisions c/d/i - no erythema, ecchymosis or drainage
Patient is a 59 yo M p/w acute appendicitis now POD #1 lap appy
AVSS
Labs stable
Recovering well. Okay for discharge.
-- Regular diet
-- Pain control: Tylenol, Toradol, Oxycodone
-- OOB/Ambulate
-- No need for further abx
-- DVT: Lovenox for VTE ppx. OK to resume Eliquis tomorrow
-- DC instructions updated
-- OK for DC
Original Note:
Today's Communication / Plan
-
dispo planning
Assessment / Plan
-
Patient is a 59 yo M with h/o factor v Leiden p/w acute appendicitis now POD #1 lap appi
AVSS
Labs stable
-- Continue regular diet
-- PO analgesics
-- OOB/Ambulate
-- No need for further abx
-- Has been on lovenox for VTE ppx. Continue to hold Eliquis until tomorrow
Ok for discharge from surgical standpoint
Subjective Data
-
Date of Service: August 17, 2024
Patient seen and examined at bedside with Dr. Moreno. Denies n/v. Tolerating diet. Minimal incisional soreness. Passing flatus.
Objective Data
-
Intake and Output
08/16/24 08/17/24 08/18/24
06:59 06:59 06:59
Intake Total 2039 1630 / 1630
Balance 2039 1630 / 1630
Intake:
Oral fluids 840 / 840 1080 / 1080
IV fluids (Total) 1100 / 1100 450 / 450
Norm 150 / 150
IV piggybacks 100 / 100 100 / 100
Other:
Number of approximated MODERATE 3 2
amounts of urine
Vital Signs
Temp Pulse Resp BP Pulse Ox
98.1 F 68 18 124/73 98
08/17/24 07:05 08/17/24 07:05 08/17/24 07:05 08/17/24 07:05 08/17/24 07:05
Lab Results
08/17/24 07:01
08/17/24 07:01
Calcium 8.5 mg/dl (8.4-10.2) 08/17/24 07:01
Magnesium 1.9 mg/dl (1.6-2.3) 08/15/24 06:34
Total Bilirubin 0.8 mg/dl (0.2-1.3) 08/17/24 07:01
AST 24 U/L (17-59) 08/17/24 07:01
ALT 25 U/L (0-50) 08/17/24 07:01
Alkaline Phosphatase 47 U/L (38-126) 08/17/24 07:01
Total Protein 5.9 g/dl (6.3-8.2) L 08/17/24 07:01
Albumin 3.6 g/dl (3.5-5.0) 08/17/24 07:01
Physical Exam
-
NAD
ABD soft, minimal incisional tenderness, nd
Incisions well approximated with intact glue and no erythema
[2024-08-17 11:05] VITALS: BP 134/89
--- NOTE | 2024-08-18 06:23 | W.DCSUMMARY ---
Documented by User: Mike Maria MD, Resident 08/18/24 06:32
Discharge Summary
Discharge Data
Date of Admission: 08/14/24
Date of Discharge: 08/17/24
-
Pending Results: No
Hospital Course
Discharging Physician : Dr. Wallis, Dr. Mckeon
Disposition : Home
Principal Discharge diagnosis : Acute appendicitis
Chronic Discharge diagnosis : Factor V Leiden
Hospital Course : 59-year-old with past medical history of factor V Leiden on Eliquis 2.5 mg presenting to the emergency department with abdominal pain in the right lower quadrant without any radiation. He denies any associated nausea or vomiting.
He denies diaphoresis. He denies fevers or chills. He has prior history of hernia repairs multiple times. 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
In the ED he was afebrile, blood pressure was 138/90 with a pulse of 83 satting 99% on room air.White count was 6.4, hemoglobin and platelets were normal. Electrolytes were BUN/creatinine within the normal range. LFTs were normal.UA was negative.
CT of the abdomen pelvis showed mild acute uncomplicated appendicitis. Patient was started on IV fluids and Zosyn, Eliquis on hold.
Surgery was consulted, plan for laparoscopic appendectomy after Eliquis washout. No postoperative complications. Patient remained afebrile, no elevated white count, stable vitals. Pain adequately controlled and patient was able to tolerate
regular diet well. On #POD 1, patient is hemodynamically stable to be discharged home without any further antibiotics at discharge. Advised to resume Eliquis on 08/18/2024 AM. Follow-up with surgery and primary care physician.
Important imaging findings :
CT abdomen/pelvis� Findings suggesting mild acute appendicitis. No evidence of perforation or abscess formation.
Hepatic infiltration. Stable
Too small to characterize hypodense right renal lesions likely benign cysts.. Stable
Discharge Plan
-
Patient Disposition: Home (Routine Discharge)
Discharge Diagnosis/Procedures: Acute appendicitis s/p laparoscopic appendectomy
Condition: Good
Diet: Regular
Activity: No strenuous activity
Additional Activity: No heavy lifting (>20 lbs) or strenuous activities for 2 weeks postoperatively
Driving Restrictions: No driving if too sore or taking narcotics
Bathing Restrictions: OK to Shower
Wound Care: Keep incisions clean and dry. Glue will flake off in 2 to 3 weeks. Stitches will dissolve. Use ice to the abdomen to reduce any bruising or swelling.
Activity Restrictions/Additional Instructions:
Call for fevers (>100.5), nausea or vomiting, worsening abdominal pain
Referrals:
Pj Moreno MD [Active] - in two to four weeks
Swati Yun CRNP [Family Provider] - in less than 1 week
Prescriptions:
New
acetaminophen [acetaminophen] 325 mg tablet
650 mg PO Q4HPRN PRN (Reason: mild pain) Qty: 1 0RF
tramadol 50 mg tablet
50 mg PO Q6HPRN PRN (Reason: severe pain/breakthrough pain) Qty: 7 0RF
ibuprofen 200 mg tablet
400 - 600 mg PO Q6HPRN PRN (Reason: moderate pain) Qty: 1 0RF
Held
Eliquis 2.5 mg tablet
2.5 mg PO BID
Hold Instructions: Resume on 08/18/24.
Discharge Orders:
Discharge Patient (As Directed); Ordered 08/17/24
Ordered By: Mike Maria
Discharge Date and Time
Discharge Date/Time: 08/17/24 15:17
Print Language: KITTITIAN

Documented by User: Arthur Wallis DO 08/18/24 08:05
Discharge Summary
Discharge Data
Date of Admission: 08/14/24
Date of Discharge: 08/18/24
Total time spent discharging patient (in min): 32
Discharge Plan
-
Patient Disposition: Home (Routine Discharge)
Discharge Diagnosis/Procedures: Acute appendicitis s/p laparoscopic appendectomy
Condition: Good
Diet: Regular
Activity: No strenuous activity
Additional Activity: No heavy lifting (>20 lbs) or strenuous activities for 2 weeks postoperatively
Driving Restrictions: No driving if too sore or taking narcotics
Bathing Restrictions: OK to Shower
Wound Care: Keep incisions clean and dry. Glue will flake off in 2 to 3 weeks. Stitches will dissolve. Use ice to the abdomen to reduce any bruising or swelling.
Activity Restrictions/Additional Instructions:
Call for fevers (>100.5), nausea or vomiting, worsening abdominal pain
Referrals:
Pj Moreno MD [Active] - in two to four weeks
Swati Yun CRNP [Family Provider] - in less than 1 week
Prescriptions:
New
acetaminophen [acetaminophen] 325 mg tablet
650 mg PO Q4HPRN PRN (Reason: mild pain) Qty: 1 0RF
tramadol 50 mg tablet
50 mg PO Q6HPRN PRN (Reason: severe pain/breakthrough pain) Qty: 7 0RF
ibuprofen 200 mg tablet
400 - 600 mg PO Q6HPRN PRN (Reason: moderate pain) Qty: 1 0RF
Held
Eliquis 2.5 mg tablet
2.5 mg PO BID
Hold Instructions: Resume on 08/18/24.
Discharge Orders:
Discharge Patient (As Directed); Ordered 08/17/24
Ordered By: Mike Maria
Discharge Date and Time
Discharge Date/Time: 08/17/24 15:17
Print Language: KITTITIAN
== END 2024-08-17 15:17 | disposition home or self-care (01) | DRG 398 ==
LOC: 3 WEST ACU 21:06
PROVIDERS: Emergency Medicine; Physician Assistant; Registered Nurse; Student in an Organized Health Care Education/Training Program; Surgery; ADMITTING PHYSICIAN Internal Medicine; ATTENDING PHYSICIAN Internal Medicine; CONSULT PHYSICIAN Surgery; EMERGENCY PHYSICIAN Emergency Medicine; FAMILY PHYSICIAN Nurse Practitioner Family
PROC: 0DTJ4ZZ Resection of Appendix, Percutaneous Endoscopic Approach (ICD-10-PCS; 2024-08-16)
DX: K35.80 Unspecified acute appendicitis (principal); D68.51 Activated protein C resistance; Z79.01 Long term (current) use of anticoagulants; E78.00 Pure hypercholesterolemia, unspecified; K21.9 Gastro-esophageal reflux disease without esophagitis; K59.00 Constipation, unspecified; K66.0 Peritoneal adhesions (postprocedural) (postinfection); Z86.718 Personal history of other venous thrombosis and embolism
CPT/HCPCS: 88304; 74177; 80048; 80053; 81003; 81015; 83605; 83690; 83735; 85025; 85027; 85610; 96361; 96365; 96375; 99285; C1776; Q9967

== ENCOUNTER 2024-12-13 12:14 | Day surgery (SDC) | payer OTHER, SELFPAY ==
[2024-12-13 10:35] VITALS: BMI 25.0
[2024-12-13 10:37] VITALS: BMI 25.0
[2024-12-13 10:50] VITALS: BP 142/89
[2024-12-13 12:08] VITALS: BP 124/95
[2024-12-13 12:15] VITALS: BP 110/59
[2024-12-13 12:30] VITALS: BP 135/99
[2024-12-13 12:45] VITALS: BP 139/103
== END 2024-12-13 13:03 | disposition home or self-care (01) ==
LOC: GI 12:14
PROVIDERS: ATTENDING PHYSICIAN Internal Medicine Gastroenterology
DX: Z12.11 Encounter for screening for malignant neoplasm of colon (principal); R13.14 Dysphagia, pharyngoesophageal phase; K22.89 Other specified disease of esophagus; K20.90 Esophagitis, unspecified without bleeding; K29.70 Gastritis, unspecified, without bleeding; K64.8 Other hemorrhoids; K57.30 Diverticulosis of large intestine without perforation or abscess without bleeding; K55.20 Angiodysplasia of colon without hemorrhage; K22.70 Barrett's esophagus without dysplasia; K20.0 Eosinophilic esophagitis; Z86.0100 Personal history of colon polyps, unspecified
CPT/HCPCS: 45382; 43239; 88305; 88342